=== PATIENT | female | born 1935 | race Caucasian/White ===

== ENCOUNTER → 2016-12-22 | Outpatient (CLI) | payer MEDICARE, OTHER | LOC: US 12-02 11:30 | DX: N18.3 Chronic kidney disease, stage 3 (moderate) (principal) ==

== ENCOUNTER → 2017-03-20 | Outpatient (CLI) | payer MEDICARE, OTHER | LOC: US 13:18 | DX: L72.3 Sebaceous cyst (principal) | CPT/HCPCS: 76536 ==

== ENCOUNTER 2020-12-18 11:53 | Observation (INO) | payer MEDICARE, OTHER ==
[~2020-12-18] VITALS: Ht 142.2 cm; Wt 110.8 kg
[~2020-12-18 11:53] MED LIST: ADVAIR 250-501 EACH INH; ALBUTEROL2.5 MG/3 M INH; CEFUROXIME500 MG PO; CELEXA20 MG PO; COREG 3.125M3.125 MG PO; ECOTRIN81 MG PO; ELAVIL 50 MG TA50 MG PO; ENULOSE10 GM/15 M PO; K-DUR TAB 20 M20 MEQ PO; LASIX40 MG PO; LEVEMIR100 UNIT/1 SQ; LIPITOR TAB 2020 MG PO; MECLIZINE HCL25 MG PO; NORCO 7.5-3251 EACH PO; OMNICEF 300 MG300 MG PO; PROTONIX40 MG PO; VASOTEC20 MG PO; VITAMIN D32000 UNI1 PO; XANAX 0.25 MG0.25 MG PO
[2020-12-18 12:58] LABS: HEMOGLOBIN 9.3 gm/dl (12.3-15.3); RED BLOOD COUNT 3.56 M/UL (4.00-5.10); WHITE BLOOD COUNT 5.1 K/UL (4.5-11.0)
[2020-12-18 13:21] LABS: BUN/CREATININE RATIO 19 (0-10)
[2020-12-18] MEDS ORDERED: FAMOTIDINE20 MG PO (15:58)
[2020-12-18] MEDS ORDERED: MIRTAZAPINE15 MG PO (15:59)
[2020-12-18] MEDS ORDERED: ALPRAZOLAM0.25 MG PO (16:23)
[2020-12-18] MEDS ORDERED: VENTOLIN HFA 66.7 GM INH (16:24)
[2020-12-18] MEDS ORDERED: ADVAIR 250-501 EACH INH (16:25)
[2020-12-18 17:48] LABS: HEMOGLOBIN 9.7 gm/dl (12.3-15.3)
[2020-12-18] MEDS ORDERED: LASIX40 MG PO ×2 (19:25→19:26)
[2020-12-18] MEDS ORDERED: POTASSIUM CHLO20 ME1 PO ×2 (19:27→19:28)
[2020-12-18] MEDS ORDERED: VITAMIN D250 MCG PO (19:30)
[2020-12-18] MEDS ORDERED: NOVOLOG FL100 UNIT/1 INJ (19:31)
[2020-12-19 04:54] LABS: HEMOGLOBIN 8.3 gm/dl (12.3-15.3); RED BLOOD COUNT 3.3 M/UL (4.00-5.10); WHITE BLOOD COUNT 5.4 K/UL (4.5-11.0)
[2020-12-19 05:24] LABS: BUN/CREATININE RATIO 17 (0-10)
[2020-12-19] MEDS ORDERED: ANUSOL HC SUPP1 SUPP PR (11:01)
[2020-12-19] MEDS ORDERED: DOCUSATE SODIU1 EAC1 PO (11:01)
[2020-12-19] MEDS ORDERED: LACTULOSE20 GM/30 M PO (11:01)
== END 2020-12-19 13:59 | disposition home or self-care (01) ==
LOC: ER1 11:53 → CDU 15:26 → M/S 21:55
PROVIDERS: Physician Assistant; ADMIT Family Medicine
DX: K62.5 Hemorrhage of anus and rectum (principal); D64.9 Anemia, unspecified; B19.10 Unspecified viral hepatitis B without hepatic coma; K74.60 Unspecified cirrhosis of liver; I85.10 Secondary esophageal varices without bleeding; E11.9 Type 2 diabetes mellitus without complications; J44.9 Chronic obstructive pulmonary disease, unspecified; J96.11 Chronic respiratory failure with hypoxia; I11.0 Hypertensive heart disease with heart failure; I50.30 Unspecified diastolic (congestive) heart failure; I35.0 Nonrheumatic aortic (valve) stenosis; E66.01 Morbid (severe) obesity due to excess calories; Z20.822 Contact with and (suspected) exposure to COVID-19; Z87.19 Personal history of other diseases of the digestive system; Z68.43 Body mass index [BMI] 50.0-59.9, adult; Z99.81 Dependence on supplemental oxygen; Z79.82 Long term (current) use of aspirin; Z79.4 Long term (current) use of insulin; Z79.899 Other long term (current) drug therapy
CPT/HCPCS: 71045; 80053; 81001; 82962; 83540; 83550; 85014; 85018; 85025; 85610; 85730; 94640; 94664; 94760; 96372; 96374; 96375; 99285; G0008; G0378; J1940; Q9967; U0002

== ENCOUNTER 2021-02-06 07:58 | Emergency (ER) | payer MEDICARE, OTHER ==
[~2021-02-06 07:58] MED LIST changes: +ALPRAZOLAM0.25 MG PO; +ANUSOL HC SUPP1 SUPP PR; +DOCUSATE SODIU1 EAC1 PO; +FAMOTIDINE20 MG PO; +LACTULOSE20 GM/30 M PO; +MIRTAZAPINE15 MG PO; +NOVOLOG FL100 UNIT/1 INJ; +POTASSIUM CHLO20 ME1 PO; +VENTOLIN HFA 66.7 GM INH; +VITAMIN D250 MCG PO
[2021-02-06 09:13] LABS: HEMOGLOBIN 10.2 gm/dl (12.3-15.3); RED BLOOD COUNT 3.87 M/UL (4.00-5.10); WHITE BLOOD COUNT 6.9 K/UL (4.5-11.0)
[2021-02-06 09:39] LABS: BUN/CREATININE RATIO 22 (0-10)
== END 2021-02-06 12:30 | disposition home or self-care (01) ==
LOC: ER1 07:58
PROVIDERS: Physician Assistant
DX: S80.01XA Contusion of right knee, initial encounter (principal); S20.211A Contusion of right front wall of thorax, initial encounter; I11.9 Hypertensive heart disease without heart failure; J44.9 Chronic obstructive pulmonary disease, unspecified; E11.9 Type 2 diabetes mellitus without complications; W17.89XA Other fall from one level to another, initial encounter; Y92.009 Unspecified place in unspecified non-institutional (private) residence as the place of occurrence of the external cause
CPT/HCPCS: 70450; 71045; 73564; 73590; 80053; 82550; 82553; 83874; 84484; 85025; 93005; 99284

== ENCOUNTER 2021-02-26 22:40 | Emergency (ER) | payer MEDICARE, OTHER ==
[2021-02-27 01:26] LABS: HEMOGLOBIN 9.3 gm/dl (12.3-15.3); RED BLOOD COUNT 3.46 M/UL (4.00-5.10); WHITE BLOOD COUNT 5.3 K/UL (4.5-11.0)
[2021-02-27 02:02] LABS: BUN/CREATININE RATIO 24 (0-10)
== END 2021-02-27 03:43 | disposition home or self-care (01) ==
LOC: ER1 22:40
PROVIDERS: Emergency Medicine
DX: S70.01XA Contusion of right hip, initial encounter (principal); I11.0 Hypertensive heart disease with heart failure; I50.9 Heart failure, unspecified; J44.9 Chronic obstructive pulmonary disease, unspecified; E11.9 Type 2 diabetes mellitus without complications; W06.XXXA Fall from bed, initial encounter
CPT/HCPCS: 70450; 71250; 72125; 80053; 81001; 85025; 94760; 99284

== ENCOUNTER 2021-03-13 22:10 | Inpatient (IN) | payer MEDICARE, OTHER ==
[~2021-03-13] VITALS: Ht 142.2 cm; Wt 116.1 kg
[2021-03-13 23:17] LABS: RED BLOOD COUNT 3.88 M/UL (4.00-5.10)
[2021-03-13 23:44] LABS: BUN/CREATININE RATIO 22 (0-10)
[2021-03-14] MEDS ORDERED: ZOFRAN ODT 4 MG4 MG SL (04:59)
[2021-03-14 12:56] LABS: ACINETOBACTER BAUMANNII Not Detected (Negative); CANDIDA ALBICANS Not Detected (Negative); CANDIDA KRUSEI Not Detected (Negative); CANDIDA TROPICALIS Not Detected (Negative); ENTEROCOCCUS Not Detected (Negative); HAEMOPHILUS INFLUENZAE Not Detected (Negative); KLEBSIELLA OXYTOCA Not Detected (Negative); KLEBSIELLA PNEUMONIAE Not Detected (Negative); KPC-CARBAPENEM-RESISTANCE GENE Not Detected (Negative); PROTEUS Not Detected (Negative); PSEUDOMONAS AERUGINOSA Not Detected (Negative); SERRATIA MARCESANS Not Detected (Negative); STAPHYLOCOCCUS Not Detected (Negative); STAPHYLOCOCCUS AUREUS Not Detected (Negative); STREP AGALACTIAE (GROUP B) Not Detected (Negative); STREP PYOGENES (GROUP A) Not Detected (Negative); STREPTOCOCCUS Not Detected (Negative); mecA (METHICILLIN RESIST GENE Not Detected (Negative); vanA/B (VANCOMYCIN RESIST GENE Not Detected (Negative)
[2021-03-14 14:25] LABS: ESCHERICHIA COLI DETECTED (Negative)
[2021-03-15 02:45] LABS: BUN/CREATININE RATIO 21 (0-10)
[2021-03-15 02:50] LABS: RED BLOOD COUNT 2.97 M/UL (4.00-5.10); WHITE BLOOD COUNT 11.9 K/UL (4.5-11.0)
--- NOTE | 2021-03-15 04:46 | NUR ---
EARLY IN THIS SHIFT PATIENT WAS ASK ABOUT HER LIVING CONDITIONS AND IF ANYONE TOOK CARE OF HER OR HELPED HER WITH ANYTHING, PATIENT IS 85 YEARS >THAN 250LBS AND ONLY 4'8". SHE STATED TO MYSELF AND THE AIDE THAT HER DAUGHTER "XIMENA" STAYES AT HER HOME ([facility]) SOMETIMES, BUT DOES NOT PROVIED ANY CARE FOR HER, SHE ALSO STATES "IM MYNOR TO GET A CAN OF SOUP FORM HER, SHE GOES ON TO SAY THAT "XIMENA" DOES DRUGS, AND ALL THE REST OF MY KIDS WORK SO I DO THE BEST I CAN TO CARE FOR MYSELF" WHEN I ASK HER IF SHE NEEDED US TO [facility] FOR HOME HEALTH OR WOULD SHE WANT TO GO TO A [facility] SO SOMEONE COULD TAKE CARE OF HER SHE STATED "YES THE [facility]" THIS PATIENT IS AND HAS BEEN ALERT AND ORIENTED THE SHIFT. SHE DID SEEM A LITTLE DISORIENTED AT THE START OF THE SHIFT I FEEL DUE TO HAVING BEEN IN THE EMERGENCY ROOM FOR AND EXTENDED TIME THE BEING MOVED TO THIS FLOOR BUT WITH CONTINUED CONVERSATION WITH PATIENT SHE WAS SPOT ON
[2021-03-16 04:27] LABS: RED BLOOD COUNT 2.95 M/UL (4.00-5.10); WHITE BLOOD COUNT 10.6 K/UL (4.5-11.0)
[2021-03-16 05:03] LABS: BUN/CREATININE RATIO 21 (0-10)
[2021-03-17 03:08] LABS: HEMOGLOBIN 8.4 gm/dl (12.3-15.3); RED BLOOD COUNT 3.11 M/UL (4.00-5.10); WHITE BLOOD COUNT 8.9 K/UL (4.5-11.0)
[2021-03-17 03:38] LABS: BUN/CREATININE RATIO 22 (0-10)
[2021-03-18 05:33] LABS: BUN/CREATININE RATIO 20 (0-10)
[2021-03-18] MEDS ORDERED: ALDACTONE 25MG25 MG PO (10:50)
[2021-03-18] MEDS ORDERED: XANAX 0.25 MG0.25 MG PO (10:50)
[2021-03-18] MEDS ORDERED: HYDROCODON-ACE1 EAC2 PO (10:50)
[2021-03-19 06:59] LABS: BUN/CREATININE RATIO 19 (0-10)
== END 2021-03-19 13:19 | DRG 871 ==
LOC: ER1 22:10 → CDU 03-14 10:37 → PROG CARE 03-14 10:37 → MED SURG 4 03-17 13:33
PROVIDERS: Emergency Medicine; Internal Medicine; Physician Assistant; ADMIT Family Medicine
PROC: 02HV33Z Insertion of Infusion Device into Superior Vena Cava, Percutaneous Approach (ICD-10-PCS; principal; 2021-03-14)
PROC: B548ZZA Ultrasonography of Superior Vena Cava, Guidance (ICD-10-PCS; 2021-03-14)
DX: A41.51 Sepsis due to Escherichia coli [E. coli] (principal); G93.41 Metabolic encephalopathy; J18.9 Pneumonia, unspecified organism; R18.8 Other ascites; K76.6 Portal hypertension; L03.116 Cellulitis of left lower limb; L03.115 Cellulitis of right lower limb; J96.11 Chronic respiratory failure with hypoxia; J44.0 Chronic obstructive pulmonary disease with (acute) lower respiratory infection; K75.81 Nonalcoholic steatohepatitis (NASH); K74.69 Other cirrhosis of liver; M79.3 Panniculitis, unspecified; D69.6 Thrombocytopenia, unspecified; Z20.822 Contact with and (suspected) exposure to COVID-19; I10 Essential (primary) hypertension; E11.9 Type 2 diabetes mellitus without complications; I35.0 Nonrheumatic aortic (valve) stenosis; E87.70 Fluid overload, unspecified; E66.01 Morbid (severe) obesity due to excess calories; E87.5 Hyperkalemia; Z99.81 Dependence on supplemental oxygen; Z79.4 Long term (current) use of insulin; Z90.710 Acquired absence of both cervix and uterus; Z90.49 Acquired absence of other specified parts of digestive tract; Z86.19 Personal history of other infectious and parasitic diseases; Z83.3 Family history of diabetes mellitus; Z82.49 Family history of ischemic heart disease and other diseases of the circulatory system; Z80.9 Family history of malignant neoplasm, unspecified; Z91.81 History of falling
CPT/HCPCS: 36415; 36600; 70450; 71045; 73502; 73552; 73562; 73590; 80048; 80053; 81001; 82140; 82550; 82553; 82803; 82962; 83036; 83605; 83735; 83880; 84100; 84132; 84484; 85025; 85027; 85610; 85730; 87040; 87077; 87086; 87150; 87186; 94640; 94664; 94760; 96374; 96375; 96376; 97110-GP-CQ; 97161; 97165; 97530-GP-CQ; 99285; C1751; J0696; J2270; J2405; J2543; J3370; J3475; J3480; J7030; J7070; Q9967; U0002

== ENCOUNTER 2021-04-20 12:43 | Emergency (ER) | payer MEDICARE, OTHER ==
[~2021-04-20 12:43] MED LIST changes: +ALDACTONE 25MG25 MG PO; +HYDROCODON-ACE1 EAC2 PO; +ZOFRAN ODT 4 MG4 MG SL
[2021-04-20 14:11] LABS: HEMOGLOBIN 9.4 gm/dl (12.3-15.3); RED BLOOD COUNT 3.35 M/UL (4.00-5.10); WHITE BLOOD COUNT 6.4 K/UL (4.5-11.0)
[2021-04-20 14:31] LABS: BUN/CREATININE RATIO 24 (0-10)
== END 2021-04-20 20:05 ==
LOC: ER1 12:43
DX: E11.649 Type 2 diabetes mellitus with hypoglycemia without coma (principal); I10 Essential (primary) hypertension; Z90.49 Acquired absence of other specified parts of digestive tract; Z90.710 Acquired absence of both cervix and uterus
CPT/HCPCS: 51701; 71045; 80053; 81001; 82550; 82553; 82962; 83874; 84484; 85025; 93005; 99285; Q9965

== ENCOUNTER 2021-04-22 10:11 | Emergency (ER) | payer MEDICARE, OTHER ==
[2021-04-22 11:11] LABS: HEMOGLOBIN 10.2 gm/dl (12.3-15.3); RED BLOOD COUNT 3.63 M/UL (4.00-5.10); WHITE BLOOD COUNT 7.8 K/UL (4.5-11.0)
[2021-04-22 11:54] LABS: BUN/CREATININE RATIO 28 (0-10)
[2021-04-22] MEDS ORDERED: CEFPODOXIME PR200 MG PO (13:50)
== END 2021-04-22 14:34 | disposition home or self-care (01) ==
LOC: ER1 10:11
PROVIDERS: Student in an Organized Health Care Education/Training Program
DX: N30.90 Cystitis, unspecified without hematuria (principal); J44.9 Chronic obstructive pulmonary disease, unspecified; Z90.49 Acquired absence of other specified parts of digestive tract; Z90.710 Acquired absence of both cervix and uterus; Z79.899 Other long term (current) drug therapy
CPT/HCPCS: 71045; 80053; 81001; 82550; 82553; 82962; 83605; 83690; 83735; 83874; 83880; 84100; 84439; 84443; 84484; 85025; 87077; 87086; 87186; 93005; 96374; 99285; J0696